=== PATIENT | male | born 1995 | race Caucasian/White ===

== ENCOUNTER 2018-06-21 08:31 | Observation (INO) | payer SELFPAY ==
[2018-06-21] VITALS (16 sets, daily range): BP systolic 114–144; BP diastolic 64–109; PULSE 56–93; RESP 17–117; TEMP 36.5–36.7; O2SAT 96–100; BMI 19.0; BMI 18.0; BMI 18.1
--- NOTE | 2018-06-21 08:33 | NURSING ---
NO OLD EKGS
--- NOTE | 2018-06-21 08:47 | EKG12_ITS ---
Test Reason : CP Blood Pressure : / mmHG Vent. Rate : 073 BPM Atrial Rate : 073 BPM P-R Int : 118 ms QRS Dur : 082 ms QT Int : 374 ms P-R-T Axes : 057 077 051 degrees QTc Int : 412 ms Normal sinus rhythm Normal ECG Confirmed by RAFAEL FREGOSO, JAMAR ([id number]), editor in chief GAYLE WILL ([id number]) on 06/23/2018 12:00:43 PM Referred By: SALLY/JESSICA Confirmed By:JAMAR HALL MD
--- NOTE | 2018-06-21 09:15 | RAD_ITS ---
STUDY: X-RAY CHEST REASON FOR EXAM: Male, 22 years old. Chest pain. Persistent cough. TECHNIQUE: PA and lateral views of the chest. COMPARISON: None. FINDINGS: EKG electrode are seen. There is a large left pneumothorax. This may be under tension. There is no demonstrated pleural abnormality. Normal size heart. Normal mediastinum and linh. Normal visualized pulmonary arteries. Normal visualized aortic arch and descending thoracic aorta. Normal visualized thoracic spine. Normal visualized ribs, clavicles, and shoulders. There is no demonstrated abnormality of the visualized soft tissue structures of the upper abdomen. RAD/Chest PA and Lateral IMPRESSION: Large left pneumothorax and possible tension. N.B. : The above information has been verbally conveyed by Maksim Elizalde MD to Ming Gutiérrez MD, on 06/21/2018 09:54:00 (ET). Electronically Signed: Maksim Elizalde MD at 9:55 EST Tel [phone], Service support ,
[2018-06-21] MEDS: Ketorolac 60 MG/2 ML Vial IM (09:53)
--- NOTE | 2018-06-21 10:49 | RAD_ITS ---
STUDY: X-RAY CHEST REASON FOR EXAM: Male, 22 years old. Status post left chest tube placement for pneumothorax. TECHNIQUE: Single AP portable view of the chest. COMPARISON: Comparison is made with prior examination done earlier in the day at 9:12 AM. FINDINGS: A small caliber catheter is seen with the tip in the superior lateral aspect of the left hemithorax. The left lung has been reexpanded. No significant pneumothorax is seen. Mild increased markings at the left lung base suggestive of early atelectasis. RAD/Chest 1 View (Portable) IMPRESSION: Status post placement of a small-caliber left-sided chest tube. The pneumothorax has resolved. Minimal residual increased markings are seen at the left lung base suggestive of atelectasis. Electronically Signed: Maksim Elizalde MD at 11:25 EST Tel [phone], Service support ,
[2018-06-21] MEDS: Propofol 200 MG/20 ML Vial IV BOLUS (11:06)
[2018-06-21] MEDS: Morphine 4 MG/ML Syringe IV (11:56)
--- NOTE | 2018-06-21 12:09 | PCM.HP.STD ---
Problem List (1) Chest pain Status: Acute History of Present Illness Date of Admission: 06/21/18 Chief Complaint: left chest pain The patient is a 22 year old M with a history of asthma and bicuspid aortic valve. He was admitted with a complaint of left sided chest pain which started suddenly this morning. He was awoken this morning with a sharp, left sided chest pain which radiated to his back and left arm. He came to [facility] ED where xray showed a large left sided pneumothrax. He had a chest tube inserted, and is being admitted to be managed for spontaneous pneumothorax. He has no history of Marfan syndrome, and also denies any family history of spontaneous pneumothorax. [] Past Medical History Allergies No Known Allergies Allergy (Verified 06/04/15 17:43) Surgical History: no surgical history Psychiatric History: No pertinent psych hx Lives: Spouse/ Significant Other Smoking Status: Current every day smoker Tobacco Use: Cigarettes Alcohol: Occasional Drugs: None - *Family History Maternal History Items: Asthma Sibling History Items: Asthma Review of Systems Constitutional: Denies: Chills, Fever, Weight Change HEENT: Denies: Head Aches, Sinus Congestion, Sinus Drainage Cardiovascular: Denies: Chest Pain, Palpitations Respiratory: Denies: Cough, Shortness of breath at rest, Sputum production Gastrointestinal: Denies: Abdominal Pain, Nausea, Vomiting Genitourinary: Denies: Dysuria Musculoskeletal: Denies: Joint Pain, Joint Tenderness Skin: Denies: Rash, Wounds Neurological: Denies: Numbness, Tingling, Focal weakness Psychiatric: Denies: Anxiety, Depression, Homicidal Ideations, Suicidal Ideations Hematologic/ Lymphatic: Denies: Easy Bruising, Easy Bleeding VTE Information - Inpt Only VTE Present on Admission: No VTE Pharm Prophylaxis ordered?: Yes Patient Problems: Active and Suspected Problems Chest pain (Acute) - Physical Exam General: Alert, Oriented x3, Cooperative, No apparent distress HEENT: Atraumatic, PERRLA, EOMI, Normocephalic Oral: Moist Mucosa Neck: Supple, No JVD, Negative Carotid Bruits Lungs: - - markedly reduced breath sounds in the left lung salazar. Normal breath sounds and air movement in right lung salazar. Left chest tube in place. Cardiovascular: Regular rate, Regular Rhythm, Normal S1, Normal S2, No murmurs Abdomen: Bowel Sounds Present, Soft, Non Tender Extremities: No clubbing, No cyanosis, No edema, Capillary Refill Less than 3 Seconds Skin: No rashes, No breakdown Musculoskeletal: No Tenderness to Palpation of Joints or Extremities Lymphatic: No Cervical, Supraclavicular, or Inguinal Adenopathy Neurological: Cranial nerves II-XII grossly intact, Neuro grossly intact, Motor Exam 5/5 strength throughout Psych/Mental Status: Normal Affect, Appropriate, Alert and oriented to time, place, person, mood and affect Vital Signs Temp Pulse Resp BP Pulse Ox 97.7 F L 63 20 H 126/73 H 97 06/21/18 08:35 06/21/18 11:58 06/21/18 11:58 06/21/18 11:58 06/21/18 11:58 Oxygen Flow Rate (L/min) [2] 15 Oxygen Flow Rate (L/min) 15 Oxygen Delivery Method [2] Non-Rebreather Oxygen Delivery Method [1 ( Non-Rebreather Initial Baseline)] Oxygen Delivery Method Room Air Weight: 140 lb Body Mass Index (BMI) 19.0 Diagnostic Data Chest X-Ray 06/21/18 10:49 IMPRESSION: Status post placement of a small-caliber left-sided chest tube. The pneumothorax has resolved. Minimal residual increased markings are seen at the left lung base suggestive of atelectasis. Electronically Signed: Maksim Elizalde MD at 11:25 EST Tel [phone], Service support , Assessment/Plan All Active Problems Chest pain (Acute) 22 y/o male presenting with a complaint of sudden left sided chest pain 1. Left sided spontaneous pneumothorax has no history of previous pneumothorax; only has asthma; no history of Marfan's syndrome in family/ Patient is 6ft tall and BMI is only 18.1. Doesnt have any pectus excavatum on examination chest tube in place. will consult pulmonology 2. Asthma: stable. Says he doesnt remember the last time he had an attack and doesnt even use inhalers. Breathing treatments prn. Will monitor DVT prophylaxis: heparin Code Visit OBSV E&M: 61329 Initial observation care L3
--- NOTE | 2018-06-21 12:13 | ED.DCSUM_ITS ---
- ER Visit Summary Date of Service: 06/21/18 Chief Complaint: Left-sided chest pain History of Present Illness: The patient is a 22 M who woke up with left-sided chest pain. He went to work and he continued to cause discomfort. It was somewhat worse with a deep breath. He denies recent travel or mobilization. Denies lower extremity pain or swelling. Denies family history of cardiac disease at young age. He does smoke and have asthma but is not on medications. He has a bicuspid aortic valve that he was diagnosed with as a child but he has not followed with a fireworks display specialist for this. Physical Examination: Vital signs are within normal limits. He is not in distress. Pulse oximetry is 100%. Heart tones are regular and without murmur. Breath sounds are diminished on the left side. There is slight chest wall tenderness but no crepitus. No clinical evidence of DVT. Test Results: Chest x-ray revealed a large left sided pneumothorax with concern for tension. Clinically, he did not appear to have a tension pneumothorax since he looks quite comfortable and his pulse oximetry is 100% on room air. I obtained written informed consent for procedural sedation and chest tube placement. We discussed alternatives such as local anesthesia only without procedural sedation and he preferred to be sedated for the procedure. His last p.o. intake was over 12 hours ago last night before bed. Risks and benefits were discussed and he signed consent. Full sterile precautions were maintained including sterile gown, mask, and gloves. Sterile field was maintained. The overlying skin was cleansed using ChloraPrep. He was given 40 mg of propofol in incremental doses. A small incision was made with a #11 scalpel less than 1 cm. The 8 Wolof chest tube was then introduced over a trocar without difficulty. He was then placed briefly on suction. He tolerated it quite well and there were no complications. No episodes of desaturation. Repeat chest x-ray shows resolution of the pneumothorax. Emergency Department Course and Treatment: I discussed the case with Dr. Wilkes who will see him in consult. He will be admitted to the hospitalist. He remained he dynamically stable. Treatment Plan: Admit overnight Disposition: Admission Impression: Initial encounter spontaneous left-sided pneumothorax with chest tube placement by emergency physician under procedural sedation using propofol This note was generated with [employer] software. It may contain incorrect words, spelling, and punctuation that were not noted in review of the chart prior to signing ED Disposition - Plan for ED Patient: Chief Complaint: Chest Pain Referrals: Care Physician,No Primary [Primary Care Provider] -
--- NOTE | 2018-06-21 14:36 | PCM.CONS.GEN ---
Reason for Consult Date of Consultation: 06/21/18 Reason for Consultation: Spontaneous pneumothorax History of Present Illness: The patient is a 22-year-old male, with a history as outlined below, who presented to the emergency department on June 21 with complaints of left-sided chest pain, which is partially pleuritic in nature. The patient reports that he woke up with this pain this morning. He went to work as per his usual. However, the pain continued to worsen. He does report that over the last 2 weeks he has been coughing more than usual. He denies a known history of underlying parenchymal lung disease. He is a current daily smoker of 0.5 packs/day and has been doing so times 8 years. The patient reports no previous history of pneumothorax. He denies any recent chest wall trauma. On presentation to the emergency department, the patient was noted to be afebrile hemodynamically stable. He was maintaining appropriate oxygen saturations on room air. A plain film chest x-ray was obtained and revealed evidence of a large left-sided pneumothorax. The patient then underwent tube thoracotomy with subsequent reexpansion of his lung. The patient was then transferred to the progressive care unit for ongoing management. Past Medical History Allergies No Known Allergies Allergy (Verified 06/04/15 17:43) Surgical History: no surgical history Psychiatric History: No pertinent psych hx Lives: Spouse/ Significant Other Smoking Status: Current every day smoker Tobacco Use: Cigarettes Alcohol: Occasional Drugs: None - *Family History Maternal History Items: Asthma Sibling History Items: Asthma Review of Systems Constitutional: Denies: Chills, Fever, Weight Change HEENT: Denies: Head Aches, Sinus Congestion, Sinus Drainage Cardiovascular: Reports: Chest Pain Respiratory: Reports: Cough, Pleuritic Pain. Denies: Shortness of Breath Gastrointestinal: Denies: Abdominal Pain, Nausea, Vomiting Genitourinary: Denies: Dysuria Musculoskeletal: Denies: Joint Pain, Joint Tenderness Skin: Denies: Rash, Wounds Neurological: Denies: Numbness, Tingling, Focal weakness Psychiatric: Denies: Anxiety, Depression, Homicidal Ideations, Suicidal Ideations Hematologic/ Lymphatic: Denies: Easy Bruising, Easy Bleeding Patient Problems: Active and Suspected Problems Chest pain (Acute) Objective: The patient's most recent lab work, culture data and imaging studies have all been personally reviewed. - Physical Exam General: Alert, Oriented x3, Cooperative, No apparent distress HEENT: Atraumatic, PERRLA, Normocephalic Oral: No Gingival or Mucosal Lesions/ Ulcerations Neck: Supple, No Nodes, Trachea Midline Lungs: Normal air movement, No rhonchi, No wheeze, No rales, - - Left-sided chest tube in place. No air leak noted in the atrium. Cardiovascular: Regular rate, Regular Rhythm, Normal S1, Normal S2, No murmurs Abdomen: Bowel Sounds Present, Soft, Non Tender, Non-Distended Extremities: No clubbing, No cyanosis, No edema, Capillary Refill Less than 3 Seconds Skin: No rashes, No breakdown Musculoskeletal: No Tenderness to Palpation of Joints or Extremities, No Muscle Wasting Lymphatic: No Cervical, Supraclavicular, or Inguinal Adenopathy Neurological: Cranial nerves II-XII grossly intact, Neuro grossly intact Psych/Mental Status: Alert and oriented to time, place, person, mood and affect Vital Signs Temp Pulse Resp BP Pulse Ox 36.7 C 57 L 18 114/68 99 06/21/18 12:45 06/21/18 12:46 06/21/18 12:45 06/21/18 12:45 06/21/18 12:45 Oxygen Flow Rate (L/min) [2] 15 Oxygen Flow Rate (L/min) 15 Oxygen Delivery Method [2] Non-Rebreather Oxygen Delivery Method [1 ( Non-Rebreather Initial Baseline)] Oxygen Delivery Method Room Air Weight: 133 lb 2.547 oz Body Mass Index (BMI) 18.0 Clinical Impression(s) from Imaging Studies Chest X-Ray 06/21/18 09:15 IMPRESSION: Large left pneumothorax and possible tension. N.B. : The above information has been verbally conveyed by Maksim Elizalde MD to Ming Gutiérrez MD, on 06/21/2018 09:54:00 (ET). Electronically Signed: Maksim Elizalde MD at 9:55 EST Tel [phone], Service support , Chest X-Ray 06/21/18 10:49 IMPRESSION: Status post placement of a small-caliber left-sided chest tube. The pneumothorax has resolved. Minimal residual increased markings are seen at the left lung base suggestive of atelectasis. Electronically Signed: Maksim Elizalde MD at 11:25 EST Tel [phone], Service support , Assessment/Plan All Active Problems Chest pain (Acute) RECOMMENDATIONS: 1. Chest tube to waterseal. 2. Obtain repeat plain film chest x-ray in the morning. 3. If no further pneumothorax is noted on chest imaging in the a.m., will consider removal. IMPRESSIONS: 1. Primary spontaneous pneumothorax The etiology for the patient's pneumothorax is unclear. However, following tube thoracotomy, the patient's left lung reexpanded. At this time, recommend maintaining the patient on waterseal overnight. Obtain repeat plain film chest x-ray in the morning. If the patient's lung remains up, will then consider removal of the chest tube. This note was generated with [employer] dictation software. It may contain incorrect words, spelling, and punctuation that were not noted in checking the note before signing. Code Visit Inpatient E&M: 73851 Init Hosp L2
--- NOTE | 2018-06-21 14:44 | CON.PCM_ITS ---
Reason for Consult Date of Consultation: 06/21/18 Reason for Consultation: Spontaneous pneumothorax History of Present Illness: The patient is a 22-year-old male, with a history as outlined below, who presented to the emergency department on June 21 with complaints of left- sided chest pain, which is partially pleuritic in nature. The patient reports that he woke up with this pain this morning. He went to work as per his usual. However, the pain continued to worsen. He does report that over the last 2 weeks he has been coughing more than usual. He denies a known history of underlying parenchymal lung disease. He is a current daily smoker of 0.5 packs/day and has been doing so times 8 years. The patient reports no previous history of pneumothorax. He denies any recent chest wall trauma. On presentation to the emergency department, the patient was noted to be afebrile hemodynamically stable. He was maintaining appropriate oxygen saturations on room air. A plain film chest x-ray was obtained and revealed evidence of a large left-sided pneumothorax. The patient then underwent tube thoracotomy with subsequent reexpansion of his lung. The patient was then transferred to the progressive care unit for ongoing management. Past Medical History Allergies No Known Allergies Allergy (Verified 06/04/15 17:43) Surgical History: no surgical history Psychiatric History: No pertinent psych hx Lives: Spouse/ Significant Other Smoking Status: Current every day smoker Tobacco Use: Cigarettes Alcohol: Occasional Drugs: None - *Family History Maternal History Items: Asthma Sibling History Items: Asthma Review of Systems Constitutional: Denies: Chills, Fever, Weight Change HEENT: Denies: Head Aches, Sinus Congestion, Sinus Drainage Cardiovascular: Reports: Chest Pain Respiratory: Reports: Cough, Pleuritic Pain. Denies: Shortness of Breath Gastrointestinal: Denies: Abdominal Pain, Nausea, Vomiting Genitourinary: Denies: Dysuria Musculoskeletal: Denies: Joint Pain, Joint Tenderness Skin: Denies: Rash, Wounds Neurological: Denies: Numbness, Tingling, Focal weakness Psychiatric: Denies: Anxiety, Depression, Homicidal Ideations, Suicidal Ideations Hematologic/ Lymphatic: Denies: Easy Bruising, Easy Bleeding Patient Problems: Active and Suspected Problems Chest pain (Acute) Objective: The patient's most recent lab work, culture data and imaging studies have all been personally reviewed. - Physical Exam General: Alert, Oriented x3, Cooperative, No apparent distress HEENT: Atraumatic, PERRLA, Normocephalic Oral: No Gingival or Mucosal Lesions/ Ulcerations Neck: Supple, No Nodes, Trachea Midline Lungs: Normal air movement, No rhonchi, No wheeze, No rales, - - Left-sided chest tube in place. No air leak noted in the atrium. Cardiovascular: Regular rate, Regular Rhythm, Normal S1, Normal S2, No murmurs Abdomen: Bowel Sounds Present, Soft, Non Tender, Non-Distended Extremities: No clubbing, No cyanosis, No edema, Capillary Refill Less than 3 Seconds Skin: No rashes, No breakdown Musculoskeletal: No Tenderness to Palpation of Joints or Extremities, No Muscle Wasting Lymphatic: No Cervical, Supraclavicular, or Inguinal Adenopathy Neurological: Cranial nerves II-XII grossly intact, Neuro grossly intact Psych/Mental Status: Alert and oriented to time, place, person, mood and affect Vital Signs Temp Pulse Resp BP Pulse Ox 36.7 C 57 L 18 114/68 99 06/21/18 12:45 06/21/18 12:46 06/21/18 12:45 06/21/18 12:45 06/21/18 12:45 Oxygen Flow Rate (L/min) [2] 15 Oxygen Flow Rate (L/min) 15 Oxygen Delivery Method [2] Non-Rebreather Oxygen Delivery Method [1 ( Non-Rebreather Initial Baseline)] Oxygen Delivery Method Room Air Weight: 133 lb 2.547 oz Body Mass Index (BMI) 18.0 Clinical Impression(s) from Imaging Studies Chest X-Ray 06/21/18 09:15 IMPRESSION: Large left pneumothorax and possible tension. N.B. : The above information has been verbally conveyed by Maksim Elizalde MD to Ming Gutiérrez MD, on 06/21/2018 09:54:00 (ET). Electronically Signed: Maksim Elizalde MD at 9:55 EST Tel [phone], Service support , Chest X-Ray 06/21/18 10:49 IMPRESSION: Status post placement of a small-caliber left-sided chest tube. The pneumothorax has resolved. Minimal residual increased markings are seen at the left lung base suggestive of atelectasis. Electronically Signed: Maksim Elizalde MD at 11:25 EST Tel [phone], Service support , Assessment/Plan All Active Problems Chest pain (Acute) RECOMMENDATIONS: 1. Chest tube to waterseal. 2. Obtain repeat plain film chest x-ray in the morning. 3. If no further pneumothorax is noted on chest imaging in the a.m., will consider removal. IMPRESSIONS: 1. Primary spontaneous pneumothorax The etiology for the patient's pneumothorax is unclear. However, following tube thoracotomy, the patient's left lung reexpanded. At this time, recommend maintaining the patient on waterseal overnight. Obtain repeat plain film chest x-ray in the morning. If the patient's lung remains up, will then consider removal of the chest tube. This note was generated with [employer] dictation software. It may contain incorrect words, spelling, and punctuation that were not noted in checking the note before signing. Code Visit Inpatient E&M: 58846 Init Hosp L2
[2018-06-21] MEDS: Acetaminophen 325 MG Tablet 650 MG PO (17:46)
[2018-06-21] MEDS: Heparin Injection (Vial) 5,000 UNIT/ML VIAL 5000 UNIT SC (22:00)
[2018-06-22] VITALS (7 sets, daily range): BP systolic 117–128; BP diastolic 55–63; PULSE 42–56; RESP 16–20; TEMP 36.6–36.9; O2SAT 98–100
--- NOTE | 2018-06-22 04:55 | RAD_ITS ---
STUDY: X-RAY CHEST REASON FOR EXAM: Male, 22 years old. Pneumothorax. TECHNIQUE: AP portable chest. COMPARISON: June 21, 2018 10:54 AM. FINDINGS: Stable position of small bore left chest tube with the tip in the left upper lobe. There is a thin obliquely oriented line transversing the proximal one third of the left clavicle suggestive of a small pneumothorax measuring 1.7 cm transverse dimension. Normal size heart. Normal mediastinum and linh. Normal visualized pulmonary arteries. Normal visualized aortic arch and descending thoracic aorta. Normal visualized thoracic spine. Normal visualized ribs, clavicles, and shoulders. There is no demonstrated abnormality of the visualized soft tissue structures of the upper abdomen. RAD/Chest 1 View (Portable) IMPRESSION: Small left apical pneumothorax. Electronically Signed: Isaiah Woodward MD at 5:39 EST , Service support ,
[2018-06-22 05:51] LABS: Absolute Lymphocyte Count 2.97 X10^3/ul (0.83-4.51); Absolute Neutrophil Count 5.2 X10^3/uL (2.0-7.7); Basophil# 0.04 X10^3/uL; Basophil% 0.4 % (0-1); Eosinophil# 0.36 X10^3/uL; Eosinophils% 3.9 % (0-5); Hematocrit 44.5 % (40-54); Hemoglobin 15.2 g/dl (13.0-16.5); Lymphocyte # 2.97 X10^3/ul (4.0); Lymphocyte % 32.4 % (19-41); Mean Corp Hgb Conc 34.2 g/gl (32-36); Mean Corpuscular Hgb 29.9 pg (27.0-32.0); Mean Corpuscular Volume 87.4 fL (80-94); Mean Platelet Vol. 9.4 fl (6.2-12.0); Monocyte# 0.62 X10^3/uL; Monocyte% 6.8 % (0-10); Neutrophil # 5.16 X10^3/uL (2.7-7.7); Neutrophil % 56.3 % (47-70); Platelet Count 221 K/mm3 (150-450); RBC Distribution Width CV 12.8 % (11.6-14.6); RBC Distribution Width SD 41.1 fl (35.1-43.9); Red Blood Count 5.09 M/mm3 (4.6-6.2); White Blood Count 9.2 K/mm3 (4.4-11.0)
[2018-06-22 06:00] LABS: POSITIVE COUNT NO; POSITIVE DIFFERENTIAL NO; POSITIVE MORPHOLOGY NO
[2018-06-22 06:07] LABS: Anion Gap 8 (5-15); BUN 21 mg/dL (7-18); BUN/Creat Ratio 22.2 RATIO (10-20); Calcium,Total 8.2 mg/dL (8.5-10.1); Chloride 109 mmol/L (98-107); Creatinine, Serum 0.95 mg/dL (0.70-1.30); EST Glomerular Filtration Rate 105 mL/min (>60); Est Glom Filt Rate - Afr Amer 127 mL/min (>60); Glucose 93 mg/dL (74-106); Sodium Level 144 mmol/L (136-145)
--- NOTE | 2018-06-22 07:06 | PN_ITS ---
Patient Problems: Active and Suspected Problems Pneumothorax on left (Acute) Subjective: The patient was seen and examined at the bedside this morning. Events from the last 24 hours have been reviewed. The patient is currently afebrile, hemodynamically stable and maintaining appropriate oxygen saturations on room air. Repeat plain film chest x-ray obtained this morning was personally reviewed and revealed complete expansion of the patient's left lung with only a small residual left apical pneumothorax noted. The patient denies the presence of shortness of breath and chest pain. Objective: The patient's most recent lab work, culture data and imaging studies have all been personally reviewed. - Physical Exam General: Alert, Oriented x3, Cooperative, No apparent distress HEENT: Atraumatic, PERRLA, Normocephalic Oral: No Gingival or Mucosal Lesions/ Ulcerations Neck: Supple, No Nodes, Trachea Midline Lungs: Normal air movement, No rhonchi, No wheeze, No rales, - - Small bore left-sided chest tube remains in place. Atrium currently to waterseal without air leak noted. Cardiovascular: Regular rate, Regular Rhythm, Normal S1, Normal S2, No murmurs Abdomen: Bowel Sounds Present, Soft, Non Tender, Non-Distended Extremities: No clubbing, No cyanosis, No edema Skin: No rashes, No breakdown Musculoskeletal: No Tenderness to Palpation of Joints or Extremities, No Muscle Wasting Lymphatic: No Cervical, Supraclavicular, or Inguinal Adenopathy Neurological: Cranial nerves II-XII grossly intact, Neuro grossly intact Psych/Mental Status: Alert and oriented to time, place, person, mood and affect Vital Signs Temp Pulse Resp BP Pulse Ox 36.6 C 42 L 20 H 117/58 L 100 06/22/18 03:46 06/22/18 03:59 06/22/18 03:46 06/22/18 03:46 06/22/18 03:46 Oxygen Flow Rate (L/min) [2] 15 Oxygen Flow Rate (L/min) 15 Oxygen Delivery Method [2] Non-Rebreather Oxygen Delivery Method [1 ( Non-Rebreather Initial Baseline)] Oxygen Delivery Method Room Air Weight: 133 lb 2.547 oz Body Mass Index (BMI) 18.0 Intake and Output for Last 24 Hours 06/20/18 06/21/18 06/22/18 23:59 23:59 23:59 Intake Total 550 / 550 400 / 400 Balance 550 / 550 400 / 400 Laboratory Tests Past 24 Hrs 06/22/18 06/22/18 05:05 05:05 WBC 9.2 RBC 5.09 Hgb 15.2 Hct 44.5 MCV 87.4 MCH 29.9 MCHC 34.2 RDW 12.8 RDW Differential 41.1 Plt Count 221 MPV 9.4 Immature Gran % (Auto) 0.200 Neut % (Auto) 56.3 Lymph % (Auto) 32.4 [place]verse % (Auto) 6.8 Eos % (Auto) 3.9 Baso % (Auto) 0.4 Absolute Neuts (auto) 5.2 Absolute Lymphs (auto) 2.97 Total Counted Not Reportable Sodium 144 Potassium 4.0 Chloride 109 H Carbon Dioxide 27.0 Anion Gap 8 BUN 21 H Creatinine 0.95 Estim Creat Clear Calc 104.20 Est GFR (MDRD) Af Amer 127 Est GFR (MDRD) Non-Af 105 BUN/Creatinine Ratio 22.2 H Glucose 93 Calcium 8.2 L Clinical Impression(s) from Imaging Studies Chest X-Ray 06/21/18 09:15 IMPRESSION: Large left pneumothorax and possible tension. N.B. : The above information has been verbally conveyed by Maksim Elizalde MD to Ming Gutiérrez MD, on 06/21/2018 09:54:00 (ET). Electronically Signed: Maksim Elzialde MD at 9:55 EST Tel [phone], Service support , Chest X-Ray 06/21/18 10:49 IMPRESSION: Status post placement of a small-caliber left-sided chest tube. The pneumothorax has resolved. Minimal residual increased markings are seen at the left lung base suggestive of atelectasis. Electronically Signed: Maksim Elizalde MD at 11:25 EST Tel [phone], Service support , Chest X-Ray 06/22/18 04:55 IMPRESSION: Small left apical pneumothorax. Electronically Signed: Isaiah Woodward MD at 5:39 EST , Service support , Medical Necessity - Tobacco Use Smoking Status: Current every day smoker Tobacco Use: Cigarettes Assessment/Plan All Active Problems Pneumothorax on left (Acute) Chest pain (Acute) RECOMMENDATIONS: 1. We will remove chest tube this morning. 2. Place patient on supplemental oxygen and obtain repeat chest x-ray at 1000 hrs. 3. If the patient's lung remains up on his follow-up chest x-ray, he can be discharged home from my perspective. IMPRESSIONS: 1. Primary spontaneous pneumothorax The etiology for the patient's pneumothorax is unclear. However, following tube thoracotomy, the patient's left lung reexpanded. The patient was transitioned to waterseal overnight and follow-up chest imaging from earlier this morning only demonstrated a small residual apical pneumothorax. The decision was made to remove the patient's chest tube. He will be continued on supplemental oxygen with plans to repeat another chest x-ray at 1000 hrs. If the patient's lung remains up on that chest imaging study, he can be discharged home from my perspective. This note was generated with [employer] dictation software. It may contain incorrect words, spelling, and punctuation that were not noted in checking the note before signing. Code Visit Inpatient E&M: 47420 Subs Hosp L3
--- NOTE | 2018-06-22 09:48 | RAD_ITS ---
STUDY: X-RAY CHEST REASON FOR EXAM: Male, 22 years old. Follow-up of left-sided pneumothorax. TECHNIQUE: Two AP portable views of the chest. COMPARISON: June 22 2018 time stamped 4:52 AM. FINDINGS: Cardiac monitoring leads are present. The lungs are clear and expanded. There is a small left apical pneumothorax, similar to previous study. There is no evidence for pleural effusion. Normal size heart. Normal mediastinum and linh. Normal visualized pulmonary arteries. Normal visualized aortic arch and descending thoracic aorta. Normal visualized thoracic spine. Normal visualized ribs, clavicles, and shoulders. There is no demonstrated abnormality of the visualized soft tissue structures of the upper abdomen. RAD/Chest 1 View (Portable) IMPRESSION: Unchanged appearance to small left apical pneumothorax. Electronically Signed: Soraida Agrawal MD at 10:21 EST , Service support ,
[2018-06-22] MEDS: Heparin Injection (Vial) 5,000 UNIT/ML VIAL 5000 UNIT SC (10:24)
--- NOTE | 2018-06-22 11:00 | DCINST_ITS ---
- Discharge Diagnoses Current Active Problems: Current Active and Chronic Problems Chest pain (Acute) Left pneumothorax - spontaneous Nicotine dependence Chronic asthma You will use the following diet at home:: No restrictions Your food should be the consistency of: Regular Your liquids should be the consistency of: Regular/Thin Discharge Activity: Return to Normal Activity Return to work on:: 06/26/18 May resume sexual activity in: No Restrictions Call your doctor if you observe: Fever of 101 or Higher, Shortness of breath, Dizziness, Chest pain Instructions: Pneumothorax (Collapsed Lung) Additional Instructions: If you develop recurrent chest pain, shortness of breath, dry cough please return to the ER. A pneumothorax can recur and we do not know why you had the lung collapse at admission. I would advise you discontinue smoking. If this recurs in the future I suggest you follow up with Dr. Wilkes as an OP. You can take Tylenol for discomfort at the site of the chest tube. 650 mg every 4-6 hours as needed for pain. Pending Tests on Discharge: none Allergies/Adverse Reactions: Allergies No Known Allergies Allergy (Verified 06/04/15 17:43) Medications to take at Discharge Acetaminophen [Tylenol] 650 mg PO 4X/DAY PRN PRN #1 tablet 06/22/18 The following prescriptions were given: Acetaminophen [Tylenol] 650 mg PO 4X/DAY PRN PRN #1 tablet PRN Reason: Pain Primary Care Physician: Care Physician,No Primary [Primary Care Provider] - Test Results: Test results from this visit will be discussed in further detail at your follow- up appointment, if applicable. Proposed Discharge Date: 06/22/18
--- NOTE | 2018-06-22 11:06 | PCM.DC.SUM ---
Discharge Date and Diagnosis - Problem List Patient Problems: Active and Suspected Problems Pneumothorax on left (Acute) Date of Admission: 06/21/18 Date of Discharge: 06/22/18 - Primary Discharge Diagnosis Active and Suspected Problems Spontaneous pneumothorax on left (Acute) Chest pain (Acute) - Secondary Discharge Diagnosis Chronic Problems Nicotine dependence with current use (Chronic) Asthma (Chronic) Hospital Course and Treatment Imaging Results: 06/22/18 04:55 CXR [Chest 1 View (Portable)] [RAD] Urgent 06/22/18 09:48 CXR [Chest 1 View (Portable)] [RAD] Urgent Dr. Armando Wilkes-pulmonary medicine Operations: None Procedures: - - Chest tube placement by Dr. Gutiérrez in the emergency department Summary of Care Provided: The patient is a 22 year old M [] Patient Problems: Active and Suspected Problems Pneumothorax on left (Acute) Objective: PHYSICAL EXAM: GENERAL: alert, oriented X 3, Cooperative, NAD ORAL: moist mucosa, no mucosal lesions NECK: No JVD, supple, trachea midline LUNGS: CTA, symmetric chest expansion HEART: RRR, Normal S1 and S2, no rub, no gallop ABDOMEN: soft, NT, ND, BS present, no guarding with palpation EXTREMITIES: no edema, no cyanosis, no calf tenderness SKIN: No rashes, no breakdown NEUROLOGIC: no focal neurologic deficits PSYCH: appropriate, normal affect, pleasant - Physical Exam Vital Signs Temp Pulse Resp BP Pulse Ox 98.1 F 52 L 16 117/55 L 100 06/22/18 10:19 06/22/18 10:19 06/22/18 10:19 06/22/18 10:19 06/22/18 10:19 Oxygen Flow Rate (L/min) [2] 15 Oxygen Flow Rate (L/min) 3 Oxygen Delivery Method [2] Non-Rebreather Oxygen Delivery Method [1 ( Non-Rebreather Initial Baseline)] Oxygen Delivery Method Room Air Weight: 133 lb 2.547 oz Body Mass Index (BMI) 18.0 Intake and Output for Last 24 Hours 06/20/18 06/21/18 06/22/18 23:59 23:59 23:59 Intake Total 550 / 550 400 / 400 Balance 550 / 550 400 / 400 Laboratory Tests Past 24 Hrs 06/22/18 06/22/18 05:05 05:05 WBC 9.2 RBC 5.09 Hgb 15.2 Hct 44.5 MCV 87.4 MCH 29.9 MCHC 34.2 RDW 12.8 RDW Differential 41.1 Plt Count 221 MPV 9.4 Immature Gran % (Auto) 0.200 Neut % (Auto) 56.3 Lymph % (Auto) 32.4 [place] % (Auto) 6.8 Eos % (Auto) 3.9 Baso % (Auto) 0.4 Absolute Neuts (auto) 5.2 Absolute Lymphs (auto) 2.97 Total Counted Not Reportable Sodium 144 Potassium 4.0 Chloride 109 H Carbon Dioxide 27.0 Anion Gap 8 BUN 21 H Creatinine 0.95 Estim Creat Clear Calc 104.20 Est GFR (MDRD) Af Amer 127 Est GFR (MDRD) Non-Af 105 BUN/Creatinine Ratio 22.2 H Glucose 93 Calcium 8.2 L Discharge Activity: Return to Normal Activity Return to work on:: 06/26/18 May resume sexual activity in: No Restrictions Call your doctor if you observe: Fever of 101 or Higher, Shortness of breath, Dizziness, Chest pain Home Medications: Medications to take at Discharge Acetaminophen [Tylenol] 650 mg PO 4X/DAY PRN PRN #1 tablet 06/22/18 Following Prescrptions Were Given to Patient: Acetaminophen [Tylenol] 650 mg PO 4X/DAY PRN PRN #1 tablet PRN Reason: Pain Primary Care Physician: Care Physician,No Primary [Primary Care Provider] - Patient Instructions: Pneumothorax (Collapsed Lung) Medical Necessity - Tobacco Use Smoking Status: Current every day smoker Tobacco Use: Cigarettes Meaningful Use Info Meaningful Use Diagnoses (Choose all that apply): None applicable Code Visit Inpatient E&M: 27207 Disch Hosp
== END 2018-06-22 10:55 | disposition home or self-care (01) ==
LOC: ED 11:37 → PCU 06-22 06:18
PROVIDERS: Admitting Provider Student in an Organized Health Care Education/Training Program; Emergency Provider Emergency Medicine; Visit Provider Internal Medicine
DX: J93.9 Pneumothorax, unspecified (principal); J45.909 Unspecified asthma, uncomplicated; F17.210 Nicotine dependence, cigarettes, uncomplicated; Q23.1 Congenital insufficiency of aortic valve
CPT/HCPCS: 32551; 36415; 71045; 71046; 80048; 85025; 93005; 96372; 96374; 96375; 99152; 99218; 99283; 99406; J7030; A4216; G0378

== ENCOUNTER 2019-03-19 00:20 | Emergency (ER) | payer SELFPAY ==
[2018-06-21 12:53] VITALS: BMI 18.0
[2019-03-19 00:21] VITALS: BP 131/59; PULSE 83; RESP 15; TEMP 36.8; O2SAT 97; BMI 18.7
--- NOTE | 2019-03-19 00:37 | RAD_ITS ---
STUDY: X-RAY - UNILATERAL RIBS ( LEFT ) WITH CHEST REASON FOR EXAM: Male, 23 years old. FELL ONTO FENCE, PAIN LOWER LEFT TECHNIQUE - RIBS: 4 view(s) of the ribs. TECHNIQUE - CHEST: Single AP portable view of the chest. COMPARISON: None. FINDINGS - RIBS: Nondisplaced fractures of the anterior aspect of the left ninth and 10th ribs. FINDINGS - CHEST: The lungs are clear and expanded. There is no demonstrated pleural abnormality. Normal size heart. Normal mediastinum and linh. Normal visualized pulmonary arteries. Normal visualized aortic arch and descending thoracic aorta. Normal visualized thoracic spine. Normal visualized ribs, clavicles, and shoulders. There is no demonstrated abnormality of the visualized soft tissue structures of the upper abdomen. RAD/Ribs Uni Min 3V w/PA Chest IMPRESSION: RIBS: Nondisplaced fractures of the anterior aspect of the left ninth and 10th ribs. CHEST: Normal x-ray examination of the chest. Electronically Signed: Sierra Powers, at 1:53 EDT Tel , Service support ,
--- NOTE | 2019-03-19 00:38 | ED.VIS.INJ ---
History of Present Illness Chief Complaint: Other, Pain/Inj Detail of Chief Complaint: ribcage injury Informant: Patient Onset: Days - 4-5 Mechanism/Context: Blunt Injury, Fall Quality of Pain: Aching Location: left lower ant and lateral ribs Current Severity: Moderate Maximum Severity: Moderate Worsened by: moving, palpation, deep inspiration Relieved by: breathing easy and remaining still Associated Symptoms: Negative for: Loss of consciousness Narrative: Patient states he was climbing a fence when part of it gave way causing him to fall to his left side, injuring his rib cage. This occurred 4 or 5 days ago. Tonight he was getting dressed and he felt the pain that felt similar to when he had a spontaneous pneumothorax. He denies any dyspnea. All symptoms are left side thorax. Denies any GI symptoms. 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 He also drove a lot today, and the bumps in the road were making his pain worse. - Past Medical History (1) Spontaneous pneumothorax Status: Resolved (2) Asthma Status: Chronic Past Medical History - Allergies and Home Meds Allergies/Adverse Reactions: Allergies No Known Allergies Allergy (Verified 03/19/19 00:24) Primary Care Physician: Care Physician,No Primary [Primary Care Provider] - Surgical History: no surgical history Lives: With Family Smoking Status: Current every day smoker - Family History Maternal Family History: Reports: Asthma Sibling Family History: Reports: Asthma Review of Systems Cardiovascular: Reports: Chest pain - Left rib cage. See HPI.. Denies: Palpitations Respiratory: Denies: Dyspnea, Cough, Dyspnea on exertion Gastrointestinal: Denies: Abdominal pain, Nausea, Vomiting, Diarrhea, Melena, Hematochezia Musculoskeletal: Denies: Neck pain, Back pain, Swelling, Extremity Pain Skin: Reports: Abrasions. Denies: Rash Neurological: Denies: Headache, Weakness, Parasthesia, Numbness Physical Exam Vital Signs/Narrative: Vital Signs Temp Pulse Resp BP Pulse Ox 03/19/19 00:21 98.2 F 83 15 131/59 H 97 Inital Vital Signs reviewed: Yes General: Well nourished, Well developed, - - Well-appearing, no distress, conversing in full sentences Head: Normocephalic, Atraumatic Neck: Nontender, Full ROM Respiratory: No distress, CTA bilaterally - With equal breath sounds present bilaterally, Chest tenderness - Left lower anterior lateral rib cage. No crepitance or step-off palpable. No flail. No subcutaneous emphysema. Abdomen: Soft, Nondistended, Normal bowel sounds, Tender - Mild left subcostal area. Negative for: Guarding, Rebound tenderness, Splenomegaly Back: Nontender. Negative for: Spinal Tenderness Skin: Normal color, No rash, Trauma - Healing scabbed superficial abrasion left lateral lower chest wall Neurological: Alert, Oriented x3, Cranial nerves II-XII grossly intact, Normal Strength, Normal Sensation, Normal Gait Psychological: Normal affect, Normal Mood - Glascow Coma Scale Eye Opening: Spontaneous Motor: Obeys Commands Verbal: Oriented Coma Scale Total: 15 Diagnostic/Tx/Re-eval Clinical Impression(s) from Imaging Studies Ribs w/Chest X-Ray 03/19/19 00:37 IMPRESSION: RIBS: Nondisplaced fractures of the anterior aspect of the left ninth and 10th ribs. CHEST: Normal x-ray examination of the chest. Electronically Signed: Sierra Powers, at 1:53 EDT Tel , Service support , - Medical Decision Making X-rays as above showed no pneumothorax. He does have a couple of nondisplaced rib fractures, which certainly explains his pain. He declines offer for analgesics and has a leave to take at home. Given appropriate discharge instructions. ED Disposition - Plan for ED Patient: Disposition: Home or Assisted Living Diagnosis: Closed rib fracture Instructions: FRACTURE, Rib Referrals: Doctor,Your [STAFF PHYSICIAN] - 10-14 Days if not better
[2019-03-19 02:14] VITALS: BP 128/88; PULSE 82; RESP 18; O2SAT 97
== END 2019-03-19 02:15 | disposition home or self-care (01) ==
PROVIDERS: Emergency Provider Emergency Medicine
DX: S22.42XA Multiple fractures of ribs, left side, initial encounter for closed fracture (principal); W17.89XA Other fall from one level to another, initial encounter; Y93.89 Activity, other specified; Y92.9 Unspecified place or not applicable; Y99.9 Unspecified external cause status; J45.909 Unspecified asthma, uncomplicated; F17.200 Nicotine dependence, unspecified, uncomplicated
CPT/HCPCS: 71101; 99282